=== PATIENT | female | born 1930 | race Caucasian/White ===

== ENCOUNTER 2017-08-13 13:03 | Emergency (ER) | payer MEDICARE ==
--- NOTE | 2017-08-13 14:56 | CT ---
HEAD CT WITHOUT CONTRAST: Date: 08-13-17 Comparison: None. History: Recent falls. Technique: Serial axial CT imaging at 5 mm interval from vertex through the skull base without contra st. FINDINGS: There is mild mucosal thickening involving the posterior aspect of bilateral maxillary sinuses. There is mild mucosal thickening or bilateral ethmoid air cells. There is atherosclerotic calcification of the cavernous carotid arteries in the distal vertebral arteries. There is no displaced calvarial fracture noted. There is no intracranial hemorrhage, midline shift, mass effect or ventricular enlargement. There is mild diffuse cerebral volume loss. IMPRESSION: 1. No intracranial hemorrhage or displaced calvarial fracture. 2. Atherosclerotic calcification. POS: [facility]
== END 2017-08-13 15:44 | disposition home or self-care (01) ==
LOC: ERS 13:03
DX: S80.212A Abrasion, left knee, initial encounter (principal); S80.211A Abrasion, right knee, initial encounter; S09.90XA Unspecified injury of head, initial encounter; I25.10 Atherosclerotic heart disease of native coronary artery without angina pectoris; I10 Essential (primary) hypertension; W18.30XA Fall on same level, unspecified, initial encounter
CPT/HCPCS: 70450